=== PATIENT | female | born 1980 | race Two or more races ===

== ENCOUNTER 2023-10-27 12:38 | Emergency (ER) | payer OTHER ==
[~2023-10-27] VITALS: Ht 160 cm; Wt 94.1 kg
[2023-10-27 13:24] VITALS: TEMP 98.8
[2023-10-27] MEDS ORDERED: LOSA-382 PO (13:49)
[2023-10-27] MEDS ORDERED: CETI-450 PO (13:49)
[2023-10-27] MEDS ORDERED: SERT-158 PO (13:49)
[2023-10-27] MEDS ORDERED: ALBU18HF12 IH (13:49)
[2023-10-27] MEDS ORDERED: ATOR10TA PO (13:49)
[2023-10-27] MEDS: LIDOCAINE 1% 10 ML VIAL ID ONE (14:34)
[2023-10-27] MEDS: IBUPROFEN 600 MG TABLET PO ONE (14:34)
[2023-10-27] MEDS: POVIDONE-IODINE 10% 15 ML SOLUTION UD TP ONE (14:34)
[2023-10-27] MEDS: DOXYCYCLINE HYCLATE 100 MG TABLET PO ONE (15:09)
[2023-10-27 15:10] VITALS: BP 116/70; PULSE 61; RESP 18
== END 2023-10-27 15:39 ==
LOC: EMS 12:41
DX: L02.212 Cutaneous abscess of back [any part, except buttock and flank] (principal); J45.909 Unspecified asthma, uncomplicated; I10 Essential (primary) hypertension; Z88.0 Allergy status to penicillin; Z88.1 Allergy status to other antibiotic agents
CPT/HCPCS: 99283; 10060; J3490; 99284